=== PATIENT | female | born 1970 | race Caucasian/White ===

== ENCOUNTER 2020-09-20 11:18 | Inpatient (IN) ==
[2020-09-20 12:32] LABS: Albumin 4.1 G/DL (3.4-5.0); Basophils # 0.1 10*3/uL (0.0-0.2); Basophils % 0.9 % (0.0-0.8); Bilirubin,Total 0.4 MG/DL (0.2-1.0); Calcium 9.1 MG/DL (8.5-10.1); Eosinophils # 0.4 10*3/uL (0.0-0.87); Eosinophils % 4.4 % (0.00-10.9); Hematocrit 39.3 VOL% (35.7-47.0); Hemoglobin 13.4 GM/DL (12.0-16.0); Immature Granulocytes % 0.5 %; Immature Granulocytes Absolute 0.04 #; Lymphocytes # 3.1 10*3/uL (1.4-4.0); Lymphocytes % 37.9 % (21.3-54.2); Mean Corpuscular HGB Conc 34.1 GM/DL (32-36); Mean Corpuscular Volume 84.9 FL (87-102); Mean Platelet Volume 9.5 FL (9.6-12.0); Monocytes % 9.8 % (1.7-12.7); Neutrophils % 46.5 % (38.7-73.9); Osmolality,Calculated 279.4 MOS/KG (273-304); Platelet Count 332 T/CUMM (130-400); Potassium 4.2 MMOL/L (3.5-5.1); Red Blood Count 4.63 MC/CUMM (3.8-5.5); Red Cell Distribution Width 13.4 % (9.3-17.3); Total Protein 7.4 G/DL (6.4-8.2); White Blood Count 8.2 T/CUMM (4-12)
[2020-09-20] MEDS ORDERED: ONDANSETRON 4 MG/2 ML VIAL IV PRN (15:33)
[2020-09-20] MEDS ORDERED: DEXTROSE 50% 25 GM/50 ML VIAL IV PRN (15:33)
[2020-09-20] MEDS ORDERED: GLUCAGON 1 MG VIAL IM PRN (15:33)
[2020-09-20] MEDS: ENOXAPARIN 40 MG/0.4 ML SYRINGE SUBCUT SCH (16:45)
[2020-09-20] MEDS: methylPREDNISolone SOD SUC 125 MG/2 ML VIAL IV SCH (16:45)
[2020-09-20] MEDS: FAMOTIDINE 20 MG TABLET PO SCH (21:55)
[2020-09-20] MEDS: ROSUVASTATIN 10 MG TABLET PO SCH (21:55)
[2020-09-21] MEDS: methylPREDNISolone SOD SUC 125 MG/2 ML VIAL IV SCH ×4 (00:50→23:59)
[2020-09-21 02:12] LABS: Bilirubin,Urine Negative (Negative); Blood, Urine Negative (Negative); Glucose,Urine (UA) 150 mg/dL (Negative); Ketones,Urine 5 mg/dL (Negative); Mucus,Urine Occasional /LPF (Occasional); Nitrite,Urine Negative (Negative); Protein,Urine Negative; RBC,Urine <1 /HPF (0-4); Squamous Epithelial Cell,Urine Occasional /HPF (0-10); Urine Appearance CLEAR (Clear); Urine Color Yellow (Yellow); Urine Specific Gravity 1.025 (1.001-1.035); Urine Urobilinogen < 2.0 EU/DL (0.2-1.0)
[2020-09-21 05:02] LABS: Basophils % 0.3 % (0.0-0.8); Eosinophils % 0.3 % (0.00-10.9); Hemoglobin 13.6 GM/DL (12.0-16.0); Immature Granulocytes % 0.7 %; Immature Granulocytes Absolute 0.09 #; Lymphocytes # 1.6 10*3/uL (1.4-4.0); Mean Corpuscular HGB Conc 32.4 GM/DL (32-36); Mean Corpuscular Volume 88.4 FL (87-102); Mean Platelet Volume 9.5 FL (9.6-12.0); Monocytes % 0.4 % (1.7-12.7); Neutrophils % 86.3 % (38.7-73.9); Platelet Count 368 T/CUMM (130-400); Red Blood Count 4.75 MC/CUMM (3.8-5.5); Red Cell Distribution Width 13.2 % (9.3-17.3); White Blood Count 13.6 T/CUMM (4-12)
[2020-09-21 05:36] LABS: Calcium 9.7 MG/DL (8.5-10.1); Osmolality,Calculated 272.1 MOS/KG (273-304); Potassium 3.9 MMOL/L (3.5-5.1); Risk Ratio 4.04; Thyroid Stimulating Hormone 0.429 uIU/ml (0.358-3.74); VLDL CHOLESTEROL 26.8 MG/DL
[2020-09-21] MEDS ORDERED: PANTOPRAZOLE 40 MG TABLET PO SCH (09:00)
[2020-09-21] MEDS: SERTRALINE 50 MG TABLET PO SCH (09:12)
[2020-09-21] MEDS: ASPIRIN EC 81 MG TABLET PO SCH (09:13)
[2020-09-21] MEDS: CETIRIZINE 10 MG TABLET PO SCH (09:13)
[2020-09-21] MEDS: FAMOTIDINE 20 MG TABLET PO SCH ×2 (09:13→20:58)
[2020-09-21] MEDS: MONTELUKAST 10 MG TABLET PO SCH (09:13)
[2020-09-21] MEDS: FLUTICASONE 50 MCG NASAL SPRAY 16 GM BOTTLE BOTH NARES SCH (09:15)
[2020-09-21] MEDS: PROPAFENONE 225 MG PO SCH (09:25)
[2020-09-21] MEDS: ENOXAPARIN 40 MG/0.4 ML SYRINGE SUBCUT SCH (16:42)
[2020-09-21] MEDS: ROSUVASTATIN 10 MG TABLET PO SCH (20:58)
[2020-09-22 03:47] LABS: Basophils # 0.1 10*3/uL (0.0-0.2); Basophils % 0.2 % (0.0-0.8); Hematocrit 39.6 VOL% (35.7-47.0); Hemoglobin 12.8 GM/DL (12.0-16.0); Immature Granulocytes % 1.7 %; Immature Granulocytes Absolute 0.47 #; Lymphocytes # 2.1 10*3/uL (1.4-4.0); Lymphocytes % 7.5 % (21.3-54.2); Mean Corpuscular HGB Conc 32.3 GM/DL (32-36); Mean Corpuscular Volume 88.4 FL (87-102); Mean Platelet Volume 9.3 FL (9.6-12.0); Monocytes % 1.4 % (1.7-12.7); Neutrophils % 89.2 % (38.7-73.9); Platelet Count 363 T/CUMM (130-400); Red Blood Count 4.48 MC/CUMM (3.8-5.5); Red Cell Distribution Width 13.4 % (9.3-17.3); White Blood Count 28.4 T/CUMM (4-12)
[2020-09-22 04:13] LABS: Lymphocytes 7 % (20-55); Platelet Estimate Increased; Segmented Neutrophils 93 % (50-85); Total Cells Counted 100
[2020-09-22 04:14] LABS: Microcytosis 1+; Osmolality,Calculated 279.7 MOS/KG (273-304); Polychromasia Slight; Potassium 4.3 MMOL/L (3.5-5.1); Stomatocytes Few
[2020-09-22] MEDS: ASPIRIN EC 81 MG TABLET PO SCH (08:57)
[2020-09-22] MEDS ORDERED: BISACODYL 5 MG TABLET PO PRN (08:57)
[2020-09-22] MEDS: MONTELUKAST 10 MG TABLET PO SCH (08:57)
[2020-09-22] MEDS: CETIRIZINE 10 MG TABLET PO SCH (08:58)
[2020-09-22] MEDS: SERTRALINE 50 MG TABLET PO SCH (08:58)
[2020-09-22] MEDS: FAMOTIDINE 20 MG TABLET PO SCH ×2 (08:58→21:17)
[2020-09-22] MEDS: methylPREDNISolone SOD SUC 125 MG/2 ML VIAL IV SCH ×3 (08:59→23:59)
[2020-09-22] MEDS: FLUTICASONE 50 MCG NASAL SPRAY 16 GM BOTTLE BOTH NARES SCH (09:02)
[2020-09-22] MEDS: DOCUSATE SODIUM 100 MG CAPSULE PO SCH ×2 (10:11→21:17)
[2020-09-22] MEDS: PROPAFENONE 225 MG PO SCH (10:34)
[2020-09-22] MEDS: lisinopriL 10 MG TABLET PO SCH (15:53)
[2020-09-22] MEDS: ENOXAPARIN 40 MG/0.4 ML SYRINGE SUBCUT SCH (15:54)
[2020-09-22] MEDS: ROSUVASTATIN 10 MG TABLET PO SCH (21:17)
[2020-09-23 05:52] LABS: Basophils % 0.2 % (0.0-0.8); Hematocrit 41.9 VOL% (35.7-47.0); Hemoglobin 13.3 GM/DL (12.0-16.0); Immature Granulocytes % 2.9 %; Immature Granulocytes Absolute 0.74 #; Lymphocytes # 2.3 10*3/uL (1.4-4.0); Mean Corpuscular HGB Conc 31.7 GM/DL (32-36); Mean Corpuscular Volume 88.8 FL (87-102); Mean Platelet Volume 9.3 FL (9.6-12.0); Monocytes % 1.6 % (1.7-12.7); Neutrophils % 86.3 % (38.7-73.9); Platelet Count 378 T/CUMM (130-400); Red Blood Count 4.72 MC/CUMM (3.8-5.5); Red Cell Distribution Width 13.6 % (9.3-17.3); White Blood Count 25.7 T/CUMM (4-12)
[2020-09-23 06:10] LABS: Calcium 8.8 MG/DL (8.5-10.1); Osmolality,Calculated 282.5 MOS/KG (273-304); Potassium 4.3 MMOL/L (3.5-5.1)
[2020-09-23 06:26] LABS: Lymphocytes 6 % (20-55); Platelet Estimate Adequate; Segmented Neutrophils 94 % (50-85); Total Cells Counted 100
[2020-09-23] MEDS: CETIRIZINE 10 MG TABLET PO SCH (08:25)
[2020-09-23] MEDS: lisinopriL 10 MG TABLET PO SCH (08:25)
[2020-09-23] MEDS: MONTELUKAST 10 MG TABLET PO SCH (08:25)
[2020-09-23] MEDS: FAMOTIDINE 20 MG TABLET PO SCH ×2 (08:25→20:39)
[2020-09-23] MEDS: ASPIRIN EC 81 MG TABLET PO SCH (08:25)
[2020-09-23] MEDS: SERTRALINE 50 MG TABLET PO SCH (08:25)
[2020-09-23] MEDS: methylPREDNISolone SOD SUC 125 MG/2 ML VIAL IV SCH ×3 (08:26→23:59)
[2020-09-23] MEDS: PROPAFENONE 225 MG PO SCH (08:28)
[2020-09-23] MEDS: FLUTICASONE 50 MCG NASAL SPRAY 16 GM BOTTLE BOTH NARES SCH (08:31)
[2020-09-23] MEDS: DOCUSATE SODIUM 100 MG CAPSULE PO SCH ×2 (08:35→20:39)
[2020-09-23] MEDS: ENOXAPARIN 40 MG/0.4 ML SYRINGE SUBCUT SCH (15:47)
[2020-09-23] MEDS ORDERED: DEXTROSE 50% 25 GM/50 ML VIAL IV PRN (17:45)
[2020-09-23] MEDS ORDERED: methylPREDNISolone SOD SUC 125 MG/2 ML VIAL IV ONE (18:00)
[2020-09-23] MEDS: ROSUVASTATIN 10 MG TABLET PO SCH (20:39)
[2020-09-23] MEDS: INSULIN REGULAR 100 UNIT/ML SUBCUT SCH (20:39)
[2020-09-24] MEDS: methylPREDNISolone SOD SUC 125 MG/2 ML VIAL IV SCH ×3 (05:37→18:16)
[2020-09-24 06:21] LABS: Basophils # 0.1 10*3/uL (0.0-0.2); Basophils % 0.5 % (0.0-0.8); Immature Granulocytes % 3.8 %; Immature Granulocytes Absolute 0.81 #; Lymphocytes # 2.7 10*3/uL (1.4-4.0); Lymphocytes % 12.3 % (21.3-54.2); Mean Corpuscular HGB Conc 33.3 GM/DL (32-36); Mean Corpuscular Volume 85.7 FL (87-102); Mean Platelet Volume 9.3 FL (9.6-12.0); Monocytes % 1.2 % (1.7-12.7); Neutrophils % 82.2 % (38.7-73.9); Platelet Count 381 T/CUMM (130-400); Red Cell Distribution Width 13.4 % (9.3-17.3); White Blood Count 21.6 T/CUMM (4-12)
[2020-09-24 06:53] LABS: Atypical Lymphocytes Few; Lymphocytes 25 % (20-55); Platelet Estimate Adequate; Segmented Neutrophils 72 % (50-85); Total Cells Counted 100
[2020-09-24 07:02] LABS: Vitamin B12 586 PG/ML (211-911)
[2020-09-24 07:09] LABS: Calcium 8.9 MG/DL (8.5-10.1); Potassium 4.4 MMOL/L (3.5-5.1)
[2020-09-24] MEDS: INSULIN REGULAR 100 UNIT/ML SUBCUT SCH ×4 (07:48→21:19)
[2020-09-24] MEDS: DOCUSATE SODIUM 100 MG CAPSULE PO SCH ×2 (08:48→21:19)
[2020-09-24] MEDS: CETIRIZINE 10 MG TABLET PO SCH (08:48)
[2020-09-24] MEDS: MONTELUKAST 10 MG TABLET PO SCH (08:48)
[2020-09-24] MEDS: FAMOTIDINE 20 MG TABLET PO SCH ×2 (08:48→21:19)
[2020-09-24] MEDS: lisinopriL 10 MG TABLET PO SCH (08:48)
[2020-09-24] MEDS: SERTRALINE 50 MG TABLET PO SCH (08:48)
[2020-09-24] MEDS: PROPAFENONE 225 MG PO SCH (08:51)
[2020-09-24] MEDS: FLUTICASONE 50 MCG NASAL SPRAY 16 GM BOTTLE BOTH NARES SCH (08:52)
[2020-09-24] MEDS ORDERED: ASPIRIN EC 81 MG TABLET PO SCH (09:00)
[2020-09-24 12:45] LABS: INR 1.1; PT Patient Result 11.3 SECS (9.8-11.9)
[2020-09-24] MEDS: ACETAMINOPHEN 325 MG TABLET PO PRN (16:19)
[2020-09-24] MEDS: ROSUVASTATIN 10 MG TABLET PO SCH (21:19)
[2020-09-25] MEDS: methylPREDNISolone SOD SUC 125 MG/2 ML VIAL IV SCH ×2 (00:16→05:47)
[2020-09-25 05:43] LABS: Basophils % 0.2 % (0.0-0.8); Hematocrit 43.1 VOL% (35.7-47.0); Hemoglobin 13.9 GM/DL (12.0-16.0); Immature Granulocytes % 4.2 %; Immature Granulocytes Absolute 0.91 #; Lymphocytes # 2.5 10*3/uL (1.4-4.0); Lymphocytes % 11.6 % (21.3-54.2); Mean Corpuscular HGB Conc 32.3 GM/DL (32-36); Mean Corpuscular Volume 87.6 FL (87-102); Monocytes % 1.7 % (1.7-12.7); Neutrophils % 82.3 % (38.7-73.9); Platelet Count 351 T/CUMM (130-400); Red Blood Count 4.92 MC/CUMM (3.8-5.5); Red Cell Distribution Width 13.3 % (9.3-17.3); White Blood Count 21.9 T/CUMM (4-12)
[2020-09-25 06:04] LABS: Calcium 8.7 MG/DL (8.5-10.1); Potassium 4.7 MMOL/L (3.5-5.1)
[2020-09-25 06:06] LABS: Lymphocytes 12 % (20-55); Platelet Estimate Adequate; Segmented Neutrophils 87 % (50-85); Total Cells Counted 100
[2020-09-25] MEDS: ACETAMINOPHEN 325 MG TABLET PO PRN (06:34)
[2020-09-25] MEDS: lisinopriL 10 MG TABLET PO SCH (08:20)
[2020-09-25] MEDS: CETIRIZINE 10 MG TABLET PO SCH (08:20)
[2020-09-25] MEDS: SERTRALINE 50 MG TABLET PO SCH (08:20)
[2020-09-25] MEDS: PROPAFENONE 225 MG PO SCH (08:21)
[2020-09-25] MEDS: DOCUSATE SODIUM 100 MG CAPSULE PO SCH (08:21)
[2020-09-25] MEDS: FAMOTIDINE 20 MG TABLET PO SCH (08:21)
[2020-09-25] MEDS: MONTELUKAST 10 MG TABLET PO SCH (08:21)
[2020-09-25] MEDS: FLUTICASONE 50 MCG NASAL SPRAY 16 GM BOTTLE BOTH NARES SCH (08:22)
[2020-09-25] MEDS: INSULIN REGULAR 100 UNIT/ML SUBCUT SCH (08:23)
[2020-09-25 08:30] VITALS: BP 147/87
== END 2020-09-25 10:05 | disposition home or self-care (01) | DRG 123 ==
LOC: N.EDINP 11:18 → N.ED 11:18 → SUATTDRO 15:33 → N.EDINP 18:48 → N.TELES 20:25
PROVIDERS: ADMIT Family Medicine; ATTEND Hospitalist